=== PATIENT | female | born 1995 | race Two or more races ===

== ENCOUNTER 2018-10-15 23:44 | Emergency (ER) | payer MEDICAID ==
[~2018-10-15] VITALS: Ht 152.4 cm; Wt 69.9 kg
[~2018-10-15 23:44] MED LIST: NITROFURANTOIN100 M2 ORAL
[2018-10-15] MEDS ORDERED: NKM (23:50)
[2018-10-15 23:55] VITALS: BP 110/73
--- NOTE | 2018-10-15 23:55 | NUR ---
ED Nurse Note: PT CAME FROM HOME C/O OF LOWER ABD PAIN. PT STATES SHES BEEN VOMITING FOR TWO DAYS. UNKNOWN IF
[2018-10-16 00:20] LABS: APPEARANCE,URINE CLOUDY; BILIRUBIN, URINE NEGATIVE (NEGATIVE); COLOR,URINE PALE YELLOW; GLUCOSE, URINE (UA) NEGATIVE (NEGATIVE); KETONES,URINE NEGATIVE (NEGATIVE); LEUKOCYTE ESTERASE ,URINE 3+ (NEGATIVE); NITRITE,URINE NEGATIVE (NEGATIVE); PH,URINE 8 (4.5-8.0); PROTEIN,URINE NEGATIVE (NEGATIVE); UROBILINOGEN,URINE NORMAL MG/DL (0.0-1.0)
[2018-10-16 00:22] LABS: BASOPHILS % (AUTO) 0.9 % (0.0-2.0); EOSINOPHILS % (AUTO) 1.8 % (0.0-3.0); HEMATOCRIT 35.7 % (37.0-47.0); HEMOGLOBIN 12.2 G/DL (12.0-16.0); LYMPHOCYTES % (AUTO) 33.4 % (20.0-45.0); MEAN CORPUSCULAR VOLUME 79 FL (80-99); MONOCYTES % (AUTO) 9.5 % (1.0-10.0); NEUTROPHILS % (AUTO) 54.5 % (45.0-75.0); PLATELET COUNT 267 K/UL (150-450); RED CELL DISTRIBUTION WIDTH 14.8 % (11.6-14.8); WHITE BLOOD COUNT 7.9 K/UL (4.8-10.8)
[2018-10-16 00:29] LABS: ANION GAP 12 mmol/L (5-15); BLOOD UREA NITROGEN 11 mg/dL (7-18); CALCIUM 9.5 MG/DL (8.5-10.1); CARBON DIOXIDE 23 MMOL/L (21-32); CHLORIDE 101 MMOL/L (98-107); CREATININE 0.7 MG/DL (0.55-1.30); POTASSIUM 3.4 MMOL/L (3.5-5.1); SODIUM 136 MMOL/L (136-145)
[2018-10-16 00:35] LABS: ALANINE AMINOTRANSFERASE 35 U/L (12-78); ALBUMIN 3.6 G/DL (3.4-5.0); ALBUMIN/GLOBULIN RATIO 0.8 (1.0-2.7); ALKALINE PHOSPHATASE 55 U/L (46-116); ASPARTATE AMINO TRANSFERASE 22 U/L (15-37); BILIRUBIN,TOTAL 0.2 MG/DL (0.2-1.0)
[2018-10-16] MEDS ORDERED: cefTRIAXone 1 GM in NS 55 ML IVPB ONE (01:15)
--- NOTE | 2018-10-16 01:33 | Emergency Room Report ---
History of Present Illness General Chief Complaint: Flu Like Symptoms Source: Patient Present Illness HPI 23 yo F presents to ED c/o abdominal pain, vomiting x 2 weeks. pain is dull 5/ 10 nonradiating. states she may be . denies vaginal bleeding or discharge. denies dysuria or hematuria. no other aggravating or relieving factors. denies any other associated symptoms Allergies: Coded Allergies: No Known Allergies (Unverified , 09/14/18) Patient History Past Medical History: none Past Surgical History: none Pertinent Family History: none Social History: Denies: smoking, alcohol use, drug use Last Menstrual Period: 08/06/2018 Now: Yes - 10 weeks Immunizations: UTD Reviewed Nursing Documentation: PMH: Agreed; PSxH: Agreed Nursing Documentation-PMH Past Medical History: No Stated History Review of Systems All Other Systems: negative except mentioned in HPI Physical Exam Vital Signs Date Time Temp Pulse Resp B/P (MAP) Pulse Ox O2 Delivery O2 Flow Rate FiO2 10/15/18 23:47 95 16 119/75 100 Room Air 10/15/18 23:55 98.9 Sp02 EP Interpretation: reviewed, normal General Appearance: no apparent distress, alert, GCS 15, non-toxic Head: normocephalic, atraumatic Eyes: bilateral eye normal inspection, bilateral eye PERRL ENT: hearing grossly normal, normal pharynx, no angioedema, normal voice Neck: full range of motion, supple/symm/no masses Respiratory: chest non-tender, lungs clear, normal breath sounds, speaking full sentences Cardiovascular #1: regular rate, rhythm, no edema Cardiovascular #2: 2+ carotid (R), 2+ carotid (L), 2+ radial (R), 2+ radial (L) , 2+ dorsalis pedis (R), 2+ dorsalis pedis (L) Gastrointestinal: normal bowel sounds, non tender, soft, non-distended, no guarding, no rebound Rectal: deferred Genitourinary: normal inspection, no CVA tenderness Musculoskeletal: back normal, gait/station normal, normal range of motion, non- tender Neurologic: alert, oriented x3, responsive, motor strength/tone normal, sensory intact, speech normal Psychiatric: judgement/insight normal, memory normal, mood/affect normal, no suicidal/homicidal ideation Reflexes: 3+ bicep (R), 3+ bicep (L), 3+ tricep (R), 3+ tricep (L), 3+ knee (R) , 3+ knee (L) Skin: normal color, no rash, warm/dry, well hydrated Lymphatic: no adenopathy Medical Decision Making Diagnostic Impression: Primary Impression: Threatened Additional Impression: UTI (urinary tract infection) Qualified Codes: N39.0 - Urinary tract infection, site not specified ER Course Hospital Course 23-year-old female presents to ED complaining of lower abdominal pain with N/V. possible Differential diagnoses include: gastrits, gastroenterits, ectopic , ovarian torsion/cyst, UTI Clinical course Patient placed on stretcher in ED. After initial history and physical I ordered labs, IV fluids and Zofran and OB ultrasound. Labs-no leukocytosis, electrolytes okay, beta hCG greater than 130,000, UA + bacteria Pelvic ultrasound-IUP detected with heart rate Discussed findings with patient. On reassessment symptoms improved. Safe for discharge with close outpatient follow-up. we'll provide referrals Diagnosis - threated , UTI Stable and discharged to home with Rx zofran, macrobid, vitamins. Followup with PMD/TANK ERECTOR. Return to ED if symptoms recur or worsen Labs Test 10/16/18 00:04 White Blood Count 7.9 K/UL (4.8-10.8) Red Blood Count 4.50 M/UL (4.20-5.40) Hemoglobin 12.2 G/DL (12.0-16.0) Hematocrit 35.7 % (37.0-47.0) Mean Corpuscular Volume 79 FL (80-99) Mean Corpuscular Hemoglobin 27.1 PG (27.0-31.0) Mean Corpuscular Hemoglobin Concent 34.1 G/DL (32.0-36.0) Red Cell Distribution Width 14.8 % (11.6-14.8) Platelet Count 267 K/UL (150-450) Mean Platelet Volume 6.4 FL (6.5-10.1) Neutrophils (%) (Auto) 54.5 % (45.0-75.0) Lymphocytes (%) (Auto) 33.4 % (20.0-45.0) Monocytes (%) (Auto) 9.5 % (1.0-10.0) Eosinophils (%) (Auto) 1.8 % (0.0-3.0) Basophils (%) (Auto) 0.9 % (0.0-2.0) Urine Color Pale yellow Urine Appearance Cloudy Urine pH 8 (4.5-8.0) Urine Specific [place] 1.015 (1.005-1.035) Urine Protein Negative (NEGATIVE) Urine Glucose (UA) Negative (NEGATIVE) Urine Ketones Negative (NEGATIVE) Urine Blood Negative (NEGATIVE) Urine Nitrite Negative (NEGATIVE) Urine Bilirubin Negative (NEGATIVE) Urine Urobilinogen Normal MG/DL (0.0-1.0) Urine Leukocyte Esterase 3+ (NEGATIVE) Urine RBC 0-2 /HPF (0 - 2) Urine WBC 2-4 /HPF (0 - 2) Urine Squamous Epithelial Cells Few /LPF (NONE/OCC) Urine Amorphous Sediment Many /LPF (NONE) Urine Bacteria Moderate /HPF (NONE) Urine HCG, Qualitative Positive (NEGATIVE) Sodium Level 136 MMOL/L (136-145) Potassium Level 3.4 MMOL/L (3.5-5.1) Chloride Level 101 MMOL/L (98-107) Carbon Dioxide Level 23 MMOL/L (21-32) Anion Gap 12 mmol/L (5-15) Blood Urea Nitrogen 11 mg/dL (7-18) Creatinine 0.7 MG/DL (0.55-1.30) Estimat Glomerular Filtration Rate > 60 mL/min (>60) Glucose Level 88 MG/DL (74-106) Calcium Level 9.5 MG/DL (8.5-10.1) Total Bilirubin 0.2 MG/DL (0.2-1.0) Aspartate Amino Transf (AST/SGOT) 22 U/L (15-37) Alanine Aminotransferase (ALT/SGPT) 35 U/L (12-78) Alkaline Phosphatase 55 U/L (46-116) Total Protein 8.1 G/DL (6.4-8.2) Albumin 3.6 G/DL (3.4-5.0) Globulin 4.5 g/dL Albumin/Globulin Ratio 0.8 (1.0-2.7) Lipase 326 U/L (73-393) Human Chorionic Gonadotropin, Quant 373114 mIU/mL (1-6) CT/MRI/US Diagnostic Results CT/MRI/US Diagnostic Results : Imaging Test Ordered: OB US Impression Gestation: Single live intrauterine gestation measuring approximately 10 weeks 4 days. heart rate 153-157 bpm. Yolk sac visualized. Placenta/amniotic fluid: Cannot be adequately evaluated due to the early gestational age. Uterus/cervix: Gravid uterus. No myometrial mass. No evidence of subchorionic hemorrhage. Ovaries: Unremarkable. Right ovary measures 5.0 x 2.6 x 2.8 cm. Left ovary measures 3.8 x 2.6 x 2.0 cm. No sonographic evidence of ovarian torsion. Free fluid: No free fluid. Last Vital Signs Date Time Temp Pulse Resp B/P (MAP) Pulse Ox O2 Delivery O2 Flow Rate FiO2 10/15/18 23:55 74 21 10/15/18 23:55 98.9 110/73 100 Room Air Status: improved Disposition: HOME, SELF-CARE Condition: Stable Scripts Vit W-Ca,Fe,FA(<1 mg) ( Formula) 1 Each Tablet 1 EACH PO DAILY for 30 Days, TAB Prov: Jose R Deleon MD 10/16/18 Nitrofurantoin Monohyd/M-Cryst* (MACROBID 100 MG*) 100 Mg Capsule 100 MG ORAL EVERY 12 HOURS for 7 Days, CAP Prov: Jose R Deleon MD 10/16/18 Ondansetron Odt* (ZOFRAN ODT*) 4 Mg Tab.rapdis 4 MG BC EVERY 6 HOURS PRN for Nausea & Vomiting, #30 TAB 0 Refills Prov: Jose R Deleon MD 10/16/18 Referrals: NOT CHOSEN IPA/,REFERRING (PCP) Jose R Deleon MD Oct 16, 2018 01:33
[2018-10-16 02:21] VITALS: BP 113/76
--- NOTE | 2018-10-16 02:43 | Diagnostic Imaging Report ---
EXAM: US First Trimester, Transabdominal CLINICAL HISTORY: Abdominal pain. TECHNIQUE: Real-time transabdominal obstetrical ultrasound of the maternal pelvis and a first trimester with image documentation. COMPARISON: US dated 09/14/2018. FINDINGS: Gestation: Single live intrauterine gestation measuring approximately 10 weeks 4 days. heart rate 153-157 bpm. Yolk sac visualized. Placenta/amniotic fluid: Cannot be adequately evaluated due to the early gestational age. Uterus/cervix: Gravid uterus. No myometrial mass. No evidence of subchorionic hemorrhage. Ovaries: Unremarkable. Right ovary measures 5.0 x 2.6 x 2.8 cm. Left ovary measures 3.8 x 2.6 x 2.0 cm. No sonographic evidence of ovarian torsion. Free fluid: No free fluid. IMPRESSION: 1. Single live intrauterine gestation measuring approximately 10 weeks 4 days with heart rate of 153-157 bpm. 2. Unremarkable sonographic appearance of the ovaries. 3. No pelvic free fluid.
[2018-10-16] MEDS ORDERED: NITROFURANTOIN100 M2 ORAL (02:47)
[2018-10-16] MEDS ORDERED: PRENATAL FORMU1 EAC5 PO (02:47)
[2018-10-16] MEDS ORDERED: ONDANSETRON ODT4 MG BC (02:47)
[2018-10-16 02:53] VITALS: BP 107/78
--- NOTE | 2018-10-16 02:54 | NUR ---
ER DISCHARGE NOTE: Patient is cleared to be discharged per ERMD, pt is aox4, on room air, with stable vital signs. pt was given dc and prescription instructions, pt was able to verbalize understanding, pt id band and iv site removed without complications. pt is able to ambulate with steady gait. pt took all belongings.
== END 2018-10-16 02:53 | disposition home or self-care (01) ==
LOC: EMR 23:59
DX: O20.0 Threatened abortion (principal); O23.41 Unspecified infection of urinary tract in pregnancy, first trimester; Z3A.10 10 weeks gestation of pregnancy
CPT/HCPCS: 36415; 76801; 76830; 80053; 81003; 81025; 83690; 84702; 85025; 87086; 96361; 96365; 96375; 99284; J0696; J2405; S0028

== ENCOUNTER 2019-02-08 22:22 | Emergency (ER) | payer MEDICAID ==
[~2019-02-08] VITALS: Ht 160 cm; Wt 69.9 kg
[~2019-02-08 22:22] MED LIST changes: +NKM; +ONDANSETRON ODT4 MG BC; +PRENATAL FORMU1 EAC5 PO
--- NOTE | 2019-02-08 22:35 | NUR ---
ED Nurse Note: patient walked into ED c/o right foot pain for 1 month patient is alert awake x4 ambulatory.
--- NOTE | 2019-02-08 23:00 | NUR ---
ED Nurse Note: notified DR. Walter that patient is 25 weeks .
--- NOTE | 2019-02-08 23:02 | Emergency Room Report ---
History of Present Illness General Chief Complaint: Lower Extremity Injury Source: Patient Present Illness HPI Is a 23-year-old female with no past medical history. She presents with chief complaint of right foot pain. She had stepped on a nail that went all the way through from the bottom of her foot all the way up to the dorsum of the foot 6 years ago. It was infected with pus. It was drained. For 6 months now she did complain of right foot pain. Now there is a hard mass to that area. Getting worse. No fever chills but no nausea no vomiting. No new trauma. Pain is 8 out of 10. Worse with walking. Better with rest. Allergies: Coded Allergies: No Known Allergies (Unverified , 09/14/18) Patient History Past Medical History: see triage record, old chart reviewed Past Surgical History: none Pertinent Family History: none Social History: Denies: smoking Last Menstrual Period: 10/04/18 Now: Yes - 25 WEEKS Immunizations: other Reviewed Nursing Documentation: PMH: Agreed; PSxH: Agreed Nursing Documentation-PMH Past Medical History: No History, Except For Review of Systems Eye: Denies: eye pain, blurred vision ENT: Denies: ear pain, nose congestion, throat swelling Respiratory: Denies: cough, shortness of breath Cardiovascular: Denies: chest pain, palpitations Gastrointestinal: Denies: abdominal pain, diarrhea, nausea, vomiting Musculoskeletal: Reports: joint pain; Denies: back pain Skin: Denies: rash Neurological: Denies: headache, numbness Endocrine: Denies: increased thirst, increased urine Hematologic/Lymphatic: Denies: easy bruising All Other Systems: negative except mentioned in HPI Physical Exam Vital Signs Date Time Temp Pulse Resp B/P (MAP) Pulse Ox O2 Delivery O2 Flow Rate FiO2 02/08/19 22:28 98.4 90 16 112/74 (87) 97 Room Air Vitals normal Sp02 EP Interpretation: reviewed, normal General Appearance: well appearing, no apparent distress, alert Head: normocephalic, atraumatic Eyes: bilateral eye PERRL, bilateral eye EOMI ENT: hearing grossly normal, normal pharynx Neck: full range of motion, supple, no meningismus Respiratory: chest non-tender, lungs clear, normal breath sounds Cardiovascular #1: regular rate, rhythm, no murmur Gastrointestinal: normal bowel sounds, non tender, no mass, no organomegaly, no bruit, non-distended Genitourinary: other Musculoskeletal: back normal, gait/station normal, normal range of motion, other - right foot: hard circular mass on dorsum of foot. Psychiatric: mood/affect normal Medical Decision Making Diagnostic Impression: Primary Impression: Myositis of foot Qualified Codes: M60.871 - Other myositis, right ankle and foot ER Course Patient with a hard mass to her right foot. This been there for months. There is no bony involvement on the x-ray. This appeared to be calcify soft tissue. Most likely secondary to previous infection and bleeding in this area. Will discharge home with podiatry follow-up. Other X-Ray Diagnostic Results Other X-Ray Diagnostic Results : X-Ray ordered: xrays right foot # of Views/Limited Vs Complete: 3 View Indication: Pain EP Interpretation: Yes Interpretation: no dislocation, no fractures, other - calcified soft tissue mass. Impression: Other - calified mass Electronically Signed by: Jose Angel Waggoner MD Last Vital Signs Date Time Temp Pulse Resp B/P (MAP) Pulse Ox O2 Delivery O2 Flow Rate FiO2 02/08/19 22:28 98.4 90 16 112/74 (87) 97 Room Air Status: unchanged Disposition: HOME, SELF-CARE Condition: Stable Additional Instructions: Tylenol for pain. Follow-up with [facility] puff maker for possible surgery. Return if worse. Jose Angel Waggoner MD Feb 08, 2019 23:02
--- NOTE | 2019-02-08 23:02 | NUR ---
ED Nurse Note: notified Dr. Walter that patient is 25 weeks , motrin was given to the patient.
--- NOTE | 2019-02-08 23:34 | NUR ---
ER DISCHARGE NOTE: Patient is cleared to be discharged per ERMD, pt is aox4, on room air, with stable vital signs. pt was given dc and prescription instructions, pt was able to verbalize understanding, pt id band removed. pt is able to ambulate with steady gait. pt took all belongings.
[2019-02-08 23:35] VITALS: BP 104/68
== END 2019-02-08 23:34 | disposition home or self-care (01) ==
LOC: EMR 23:15
DX: M60.871 Other myositis, right ankle and foot (principal); O26.92 Pregnancy related conditions, unspecified, second trimester; Z3A.25 25 weeks gestation of pregnancy
CPT/HCPCS: 99283